=== PATIENT | male | born 1995 | race African-American/Black ===

== ENCOUNTER 2016-05-09 14:00 | Emergency (ER) | payer OTHER ==
[~2016-05-09] VITALS: Ht 185.4 cm; Wt 110.0 kg
[2016-05-09 14:03] VITALS: BP 126/74; PULSE 90; RESP 15; TEMP 98.3; O2SAT 90
--- NOTE | 2016-05-09 14:11 | PD ---
HPI Chief Complaint: Respiratory Symptoms Time Seen by Provider: 14:06 Travel History International Travel<30 days: No Contact w/Intl Traveler<30days: No Traveled to known affect area: No History of Present Illness HPI 20-year-old male with history of asthma presents for evaluation of wheezing and cough. Symptoms started 3 days ago, worsened this morning. The cough is somewhat productive. He reports that he typically uses an albuterol inhaler when he has asthma flareups like this but he ran out 2 weeks ago. He reports that about once a year in the early spring he has similar symptoms. Denies sore throat, ear pain, fevers or chills, recent travel, chest pain, abdominal pain, nausea, vomiting. He has no other complaints at this time. PFSH Past Medical History Asthma: Yes Diminished Hearing: No Immunizations Current: Yes Social History Alcohol Use: No Tobacco Use: No Substance Use: No Allergies-Medications (Allergen,Severity, Reaction): Coded Allergies: No Known Allergies (Unverified , 05/09/16) Reported Meds & Prescriptions Reported Meds & Active Scripts Active Proair Hfa 8.5 GM Inh (Albuterol Sulfate) 90 Mcg/Act Aer 2 Puff INH Q4-6H PRN 108 mcg/actuation Prednisone 20 Mg Tab 20 Mg PO BID 5 Days Review of Systems Except as stated in HPI: all other systems reviewed are Neg Physical Exam Narrative GENERAL: Well-developed well-nourished male in no acute distress. Speaking in complete and clear sentences, not tachypneic. His oxygen saturation is 93% on room air upon my examination SKIN: Warm and dry. HEAD: Atraumatic. Normocephalic. EYES: Pupils equal and round. No scleral icterus. No injection or drainage. ENT: No nasal bleeding or discharge. Mucous membranes pink and moist. NECK: Trachea midline. No JVD. CARDIOVASCULAR: Regular rate and rhythm. No murmur appreciated. RESPIRATORY: No accessory muscle use. Diffuse wheezing bilaterally. No crackles. GASTROINTESTINAL: Abdomen soft, non-tender, nondistended. Hepatic and splenic margins not palpable. MUSCULOSKELETAL: No obvious deformities. No clubbing. No cyanosis. No edema. Data Data Last Documented VS Vital Signs Date Time Temp Pulse Resp B/P Pulse Ox O2 Delivery O2 Flow Rate FiO2 05/09/16 14:17 18 94 Room Air 05/09/16 14:03 98.3 90 126/74 Orders Prednisone (Deltasone) (05/09/16 14:15) Albuterol-Ipratropium Neb (Duoneb Neb) (05/09/16 14:15) [facility] Medical Decision Making Medical Screen Exam Complete: Yes Emergency Medical Condition: Yes Medical Record Reviewed: Yes Differential Diagnosis Asthma exacerbation, reactive airway disease, bronchitis, pneumonia, spontaneous pneumothorax, pulmonary embolism Narrative Course 20-year-old male with history of asthma presents with 3 days of wheezing and cough consistent with previous asthma exacerbations. He ran out of his albuterol inhaler 2 weeks ago and he does not use any maintenance medication. On examination he has diffuse wheezing he is not tachypneic, tachycardic, able to speak in complete and clear sentences. Initial oxygen saturation on room air is 93%. The patient will be given 3 DuoNeb treatments as well as oral prednisone. He'll be closely monitored and reassessed. Upon reexamination the patient feels significantly improved. The plan is to discharge the patient with an albuterol inhaler as well as a five-day course of prednisone. Discussed returning if symptoms acutely worsen. Diagnosis Primary Impression: Asthma exacerbation Additional Instructions: Medication as prescribed. Follow up with a primary care physician as needed. Return for any acutely new or worsening symptoms. Med/Other Pt SpecificInfo: Prescription(s) given Scripts Albuterol 8.5 GM Inh (Proair Hfa 8.5 GM Inh)90 Mcg/Act Aer2 Puff INH Q4-6H PRN ( SHORTNESS OF BREATH) #1 INHALER Ref 0 108 mcg/actuation Prov:Ron Hoyt MD 05/09/16 Prednisone 20 Mg Tab20 Mg PO BID 5 Days Ref 0 Prov:Ron Hoyt MD 05/09/16 Disposition: 01 DISCHARGE HOME Condition: Stable Deepak Gallardo May 09, 2016 14:11
[2016-05-09] MEDS ORDERED: predniSONE 20 MG TAB PO ONE (14:15)
[2016-05-09] MEDS ORDERED: ALBUAER3 INH (14:15)
[2016-05-09] MEDS ORDERED: PRED20 PO (14:15)
[2016-05-09 14:17] VITALS: RESP 18; O2SAT 94
[2016-05-09] MEDS: RESP: ALBUTEROL 2.5 MG/IPRATROPIUM 0.5 MG NEB (SCH) INH (14:24)
== END 2016-05-09 15:14 | disposition home or self-care (01) ==
LOC: NETRI 14:00
DX: J45.901 Unspecified asthma with (acute) exacerbation (principal)
CPT/HCPCS: 94640; 94664; 99282; J7512

== ENCOUNTER 2016-05-09 22:59 | Emergency (ER) | payer OTHER ==
[~2016-05-09] VITALS: Ht 185.4 cm; Wt 111.0 kg
[~2016-05-09 22:59] MED LIST: ALBUAER3 INH; PRED20 PO
[2016-05-09 23:02] VITALS: BP 131/76; PULSE 90; RESP 16; TEMP 98.4; O2SAT 96
[2016-05-10] MEDS ORDERED: RESP: ALBUTEROL 2.5 MG/IPRATROPIUM 0.5 MG NEB (SCH) INH ONE (01:00)
[2016-05-10] MEDS ORDERED: methylPREDNISolone SOD SUCC 125 MG/2 ML VIAL IM ONE (01:00)
--- NOTE | 2016-05-10 01:56 | PD ---
HPI Chief Complaint: Respiratory Symptoms Time Seen by Provider: 23:59 Travel History International Travel<30 days: No Contact w/Intl Traveler<30days: No Traveled to known affect area: No History of Present Illness HPI The patient is a 20 year old male who presents to the [facility] emergency department with a history of shortness of breath and wheezing that began approximately 3 days ago. The patient's symptoms worsened on the morning of May 09. He was seen in the emergency department related to this. The patient reported that he had been out of his asthma inhaler for 2 weeks. The patient reports that he has had some clear nasal discharge and worsening seasonal allergy symptoms recently. He denies having a productive cough. He reports that his cough is dry in character. He denies taking any antihistamine currently. The patient was given a prescription for pro-air and prednisone at discharge yesterday, however he reports that he did not have a ride to the pharmacy to get the prescriptions filled. At approximate 9 PM tonight the symptoms again recurred. The patient denies any history of fever, cough, congestion, neck pain, chest pain, shortness of breath, abdominal pain, vomiting , diarrhea, urinary symptoms, or neurologic symptoms. PFS Past Medical History Narrative Medical The patient's past medical history is significant for asthma. Asthma: Yes Diminished Hearing: No Immunizations Current: Yes Tetanus Vaccination: Unknown Influenza Vaccination: No Past Surgical History Narrative Surgical The patient's past surgical history is reportedly none. Surgical History: No Previous Surgery Social History Alcohol Use: No Tobacco Use: No Substance Use: No Allergies-Medications (Allergen,Severity, Reaction): Coded Allergies: No Known Allergies (Unverified , 05/09/16) Reported Meds & Prescriptions Reported Meds & Active Scripts Active Proair Hfa 8.5 GM Inh (Albuterol Sulfate) 90 Mcg/Act Aer 2 Puff INH Q4-6H PRN 108 mcg/actuation Prednisone 20 Mg Tab 20 Mg PO BID 5 Days Review of Systems Except as stated in HPI: all other systems reviewed are Neg General / Constitutional: No: Fever Eyes: No: Visual changes HENT: Positive: Rhinorrhea (clear rhinorrhea), Congestion, No: Headaches Cardiovascular: Positive: Chest Pain or Discomfort (chest tightness), Dyspnea on exertion Respiratory: Positive: Cough (dry cough), Shortness of Breath, Wheezing Gastrointestinal: No: Abdominal Pain Genitourinary: No: Dysuria Musculoskeletal: No: Pain Skin: No Rash Neurologic: No: Weakness Psychiatric: No: Depression Endocrine: No: Polydipsia Hematologic/Lymphatic: No: Easy Bruising Physical Exam Narrative General: The patient is a well-developed well-nourished male in no acute distress. Head and Neck exam: Head is normocephalic atraumatic. Eyes: EOMI, pupils are equal round and reactive to light. Nose: Midline septum with blue and boggy terminates with a clear nasal discharge consistent with allergic rhinitis. Allergy Mouth: Dentition unremarkable. Moist mucus membranes. Posterior oropharynx is not erythematous. No tonsillar hypertrophy. Uvula midline. Airway patent. Neck: No palpable lymphadenopathy. No nuchal rigidity. No thyromegaly. Cardiovascular: Regular rate and rhythm without murmurs, gallops, or rubs. Lungs: Soft expiratory wheezes are audible in bilateral lung amato, no rhonchi, no crackles. The patient has an occasional dry cough on exam. Abdomen: Soft, without tenderness to palpation in all 4 quadrants of the abdomen. No guarding, rebound, or rigidity. Extremities: No clubbing, cyanosis, or edema. Back: No spinous process tenderness to palpation. No costovertebral angle tenderness to palpation. Neurologic Exam: Grossly nonfocal. Skin Exam: No rash noted. Intact skin that is warm and dry. Data Data Last Documented VS Vital Signs Date Time Temp Pulse Resp B/P Pulse Ox O2 Delivery O2 Flow Rate FiO2 05/09/16 23:46 20 05/09/16 23:02 98.4 90 131/76 96 Orders Ecg Monitoring (05/10/16 00:53) Oximetry (05/10/16 00:53) Albuterol-Ipratropium Neb (Duoneb Neb) (05/10/16 01:00) Methylprednisolone So Succ Inj (Solumedr (05/10/16 01:00) MDM Medical Decision Making Medical Screen Exam Complete: Yes Emergency Medical Condition: Yes Medical Record Reviewed: Yes Differential Diagnosis Asthma exacerbation, versus allergic rhinitis, versus reactive airway Narrative Course During the course of the patients emergency department visit, the patients history, examination, and differential diagnosis were reviewed with the patient. The patient's electronic medical record was reviewed. The patient was given a prescription for pro-air and prednisone earlier yesterday. The patient Will be given a DuoNeb 1. The patient will be given Solu-Medrol 125 mg IM. He reports that he will be able to fill his prescriptions in the morning. The patient on reexamination is noted to have resolution of his wheezing. The patient will be discharged home. The patient was encouraged to take Claritin or Zyrtec for seasonal allergy exacerbations. The patient is resting comfortably and feels better, is alert and in no distress. The patients results and examination findings were discussed with the patient. The repeat examination is unremarkable and benign. The history, exam, diagnostic testing, and current condition do not suggest any significant pathology to warrant further testing, continued ED treatment, admission, or surgical evaluation at this point. The vital signs have been stable. The patient does not have uncontrollable pain, intractable vomiting, or other significant symptoms. The patient's condition is stable and appropriate for discharge. The patient will pursue further outpatient evaluation with a primary care physician or other designated or consulting physician as indicated in the discharge instructions. The patient expressed understanding and was agreeable with this plan. Diagnosis Primary Impression: Asthma exacerbation Additional Impression: Seasonal allergies Qualified Code: J30.2 - Seasonal allergic rhinitis, unspecified allergic rhinitis trigger Referrals: Primary Care Physician Patient Instructions: Allergies (ED), Asthma (ED), General Instructions Additional Instructions: Please fill the prescriptions that were previously provided as soon as possible. Take Claritin or Zyrtec to help with seasonal allergies. Disposition: 01 DISCHARGE HOME Condition: Stable Shanell Crawford MD May 10, 2016 01:56
[2016-05-10 02:01] VITALS: O2SAT 99
== END 2016-05-10 02:07 | disposition home or self-care (01) ==
LOC: NEPE 22:59
DX: J45.901 Unspecified asthma with (acute) exacerbation (principal); J30.2 Other seasonal allergic rhinitis
CPT/HCPCS: 94664; 96372; 99283; J2930